=== PATIENT | female | born 1960 | race Two or more races ===

== ENCOUNTER → 2021-11-15 | Outpatient (CLI) | payer OTHER, SELFPAY ==
--- NOTE | 2021-11-15 07:59 | BI_ITS ---
MAMMOGRAPHY - BILATERAL SCREENING REASON FOR EXAM: Female, 61 years old. Routine annual screening examination. PERTINENT HISTORY: Aunt with breast cancer. TECHNIQUE: Digital bilateral breast eli (3D mammographic acquisition) in the CC and MLO projections. 2-D mediolateral oblique (MLO) and craniocaudad (CC) views of both breasts were obtained. CAD: Full Field Digital Mammography with Computer Added Detection was performed. COMPARISON: Comparison is made with prior examination of 07/10/2020. FINDINGS: Breast Composition: There are scattered areas of fibroglandular density. There are no dominant masses or suspicious calcifications. Stable 9.3 mm low density nodule in the axillary region of the left breast. Stable 4.9 mm well-defined nodule in the central slightly lateral anterior aspect of the right breast. Correlation with ultrasound of the right breast is recommended. No other significant abnormalities are identified. BI/SCRN MAMM (CAD)W/ELI BILAT IMPRESSION: 4.9 mm well-defined nodule in the central slightly lateral aspect of the right breast as described. Correlation with ultrasound is recommended. ASSESSMENT CATEGORY: BIRADS Category 0: Incomplete. Need additional imaging evaluation. A letter regarding these results will be sent to the patient by the facility within 30 days. Approximately 10% of breast cancers are not detected by mammography. A normal mammogram should not delay biopsy of a clinically suspicious abnormality. [id number] Electronically Signed: Patric Marinelli MD at 9:17 EDT ,
== END | disposition home or self-care (01) ==
LOC: OPBI 07:54
PROVIDERS: PCP Family Medicine; Visit Provider Family Medicine
DX: Z12.31 Encounter for screening mammogram for malignant neoplasm of breast (principal); Z80.3 Family history of malignant neoplasm of breast
CPT/HCPCS: 77063; 77067

== ENCOUNTER → 2021-11-19 | Outpatient (CLI) | payer OTHER, SELFPAY ==
--- NOTE | 2021-11-19 07:52 | US_ITS ---
STUDY: ULTRASOUND BREAST - RIGHT REASON FOR EXAM: Female, 61 years old. Abnormal screening mammogram. TECHNIQUE: Axial and longitudinal images of the RIGHT breast were performed with a high resolution ultrasound transducer. # OF IMAGES: 26 COMPARISON: Comparison is made with prior study 11/15/2021. FINDINGS: RIGHT Breast: The mammographic abnormality corresponds to an 8 mm x 7 mm x 4 mm hypoechoic solid nodule. The margins are slightly lobulated. This is seen at the 9 o''clock position breast at 2 cm from nipple. Biopsy recommended. US/Breast Limited Unilateral IMPRESSION: The mammographic abnormality corresponds to an 8 mm x 7 mm x 4 mm slightly lobulated hypoechoic nodule at the 9 o''clock position of the breast at 2 cm from nipple. Biopsy recommended. ASSESSMENT CATEGORY: BIRADS Category 4: Suspicious - Biopsy Should Be Considered. A letter regarding these results will be sent to the patient by the facility within 30 days. Electronically Signed: Patric Marinelli MD at 10:15 EDT ,
== END | disposition home or self-care (01) ==
LOC: OPUS 07:51
PROVIDERS: PCP Family Medicine; Visit Provider Family Medicine
DX: R92.8 Other abnormal and inconclusive findings on diagnostic imaging of breast (principal)
CPT/HCPCS: 76642

== ENCOUNTER → 2021-11-23 | Outpatient (CLI) | payer OTHER, SELFPAY ==
--- NOTE | 2021-11-23 07:40 | BRBX_PTH ---
PATIENT: SUJATHA AUGUSTE LOC: [facility] U#:[id number] AGE/SX: 61/F ROOM: RE11/23/[address]: Dr. Mari Fall MD : 1960 BED: DIS: 11/23/2021 SPEC #: [id number] RECD: 11/25/21 13:42 STATUS: MARIAELENA REBandar #: [id number] ANISH: 11/23/21 07:[address]: Mari Fall DEPT: SURGICAL PATHOLOGY RECD BY: Pam Sawyer ENTERED: 11/26/21 08:06 SP TYPE: BREAST BX OTHR DR: Dr. Agustín Sykes MD Tissues: Right breast, NOS Procedures: Surgery Specimen Level IV HEADER OPERATION: Right breast biopsy PRE-OP DIAGNOSIS: Right breast mass TISSUE SUBMITTED: Right breast mass 9 o?clock, 2 cm from nipple FIXATION TIME: 82 hours MICROSCOPIC DIAGNOSIS Right breast mass, 9 o?clock, 2 cm from nipple, core biopsy: Intraductal papilloma with florid intraductal hyperplasia. Negative for atypia or malignancy. See comment. JEANA:tommy 11/27/2021 COMMENT Correlation with clinical, radiologic findings and appropriate follow up are necessary. Case has been reviewed in consultation with Dr. Kitchen who concurs with the above diagnosis. IDC:AM MICROSCOPIC DESCRIPTION Slides are reviewed. GROSS DESCRIPTION Received in fixative is one container labeled with the patient's name and designated right breast. The specimen consists of multiple elongated fragments of posey-yellow fibroadipose tissue that in aggregate measure 2.5 x 1 x 0.1 cm. The entire specimen is submitted in one cassette. / JEANA:tommy 11/26/2021 TC:1 CPT: 93805
== END | disposition home or self-care (01) ==
PROVIDERS: PCP Family Medicine; Visit Provider Surgery
DX: N63.10 Unspecified lump in the right breast, unspecified quadrant (principal)
CPT/HCPCS: 88305

== ENCOUNTER → 2021-12-13 | Outpatient (CLI) | payer OTHER, SELFPAY | END | disposition home or self-care (01) | LOC: SL 11:29 | PROVIDERS: PCP Family Medicine; Referring Provider Family Medicine; Visit Provider Family Medicine | DX: G47.19 Other hypersomnia (principal); I10 Essential (primary) hypertension | CPT/HCPCS: 95806; A4216 ==

== ENCOUNTER → 2022-01-24 | Outpatient (CLI) | payer OTHER, SELFPAY | END | disposition home or self-care (01) | LOC: SL 16:23 | PROVIDERS: PCP Family Medicine; Visit Provider Family Medicine | DX: G47.33 Obstructive sleep apnea (adult) (pediatric) (principal) ==

== ENCOUNTER → 2022-04-15 | Outpatient (CLI) | payer OTHER, SELFPAY ==
--- NOTE | 2022-04-15 07:09 | RAD_ITS ---
STUDY: X-RAY CHEST REASON FOR EXAM: Female, 62 years old. Shortness of breath and cough TECHNIQUE: PA and lateral views of the chest. COMPARISON: None. FINDINGS: The lungs are clear and expanded. There is no demonstrated pleural abnormality. Normal size heart. Normal mediastinum and kal. Normal visualized pulmonary arteries. Normal visualized aortic arch and descending thoracic aorta. Normal visualized thoracic spine. Normal visualized ribs, clavicles, and shoulders. There is no demonstrated abnormality of the visualized soft tissue structures of the upper abdomen. RAD/Chest PA and Lateral IMPRESSION: Normal x-ray examination of the chest. Electronically Signed: Tyler Solares MD at 16:47 EST ,
[2022-04-15 07:49] LABS: ALB/GLOB Ratio 1.1 RATIO (0.9-2.4); AST(SGOT) 18 U/L (15-37); Alanine Aminotransfer ALT/SGPT 30 U/L (13-56); Albumin, Serum 3.5 g/dL (3.2-5.0); Alkaline Phosphatase 96 U/L (45-117); Anion Gap 5 (5-15); BUN 15 mg/dL (7-18); BUN/Creat Ratio 15.5 RATIO (10-20); Calcium,Total 8.7 mg/dL (8.5-10.1); Chloride 108 mmol/L (98-107); Cholesterol 166 mg/dL (200); Creatinine, Serum 0.97 mg/dL (0.55-1.02); EST Glomerular Filtration Rate 62 mL/min (>60); Est Glom Filt Rate - Afr Amer 75 mL/min (>60); Globulin 3.3 g/dL (2.2-4.2); Glucose 110 mg/dL (74-106); High Density Lipoprotein 40 mg/dL; Potassium 3.8 mmol/L (3.5-5.1); Protein, Total 6.8 g/dL (6.4-8.2); Sodium Level 142 mmol/L (136-145); Triglycerides 162 mg/dL; Very Low Density Lipoprotein 32 mg/dL (5-40)
== END | disposition home or self-care (01) ==
PROVIDERS: PCP Family Medicine; Referring Provider Family Medicine; Visit Provider Family Medicine
DX: R06.02 Shortness of breath (principal)
CPT/HCPCS: 36415; 71046; 80053; 80061

== ENCOUNTER → 2022-05-21 | Outpatient (CLI) | payer OTHER, SELFPAY ==
--- NOTE | 2022-05-21 07:37 | US_ITS ---
STUDY: ULTRASOUND BREAST - RIGHT REASON FOR EXAM: Female, 62 years old. Mass, previous biopsy TECHNIQUE: Axial and longitudinal images of the RIGHT breast were performed with a high resolution ultrasound transducer. # OF IMAGES: 39 COMPARISON: 11/19/2021 FINDINGS: RIGHT Breast: Sonographic evaluation of the right breast was performed from 10:00 to 8:00. Previously noted mass is again noted but is less conspicuous than on the previous study. It measures 0.6 x 0.7 x 0.5 cm at 9:00. Previously noted biopsy clip noted in same position as on the previous study. US/Breast Limited Unilateral IMPRESSION: Stable previously identified right breast mass containing biopsy clip. Another six-month follow-up recommended to assess stability ASSESSMENT CATEGORY: BIRADS Category 3: Probably Benign - Short-Interval Follow-up Suggested. A letter regarding these results will be sent to the patient by the facility within 30 days. Electronically Signed: Tyler Solares MD at 8:20 EDT ,
== END | disposition home or self-care (01) ==
LOC: OPUS 07:38
PROVIDERS: PCP Family Medicine; Visit Provider Surgery
DX: R92.8 Other abnormal and inconclusive findings on diagnostic imaging of breast (principal); N63.10 Unspecified lump in the right breast, unspecified quadrant
CPT/HCPCS: 76642

== ENCOUNTER → 2022-07-31 | Outpatient (CLI) | payer OTHER, SELFPAY ==
[2022-07-31 08:10] LABS: Absolute Lymphocyte Count 1.83 X10^3/uL (0.83-4.51); Absolute Neutrophil Count 1.5 X10^3/uL (2.0-7.7); Basophil# 0.05 X10^3/uL; Basophil% 1.2 % (0-1); Eosinophil# 0.38 X10^3/uL; Hematocrit 44.8 % (37-47); Hemoglobin 13.9 g/dL (12.0-15.0); Lymphocyte # 1.83 X10^3/ul (0.83-4.51); Lymphocyte % 43.2 % (19-41); Mean Corpuscular Hgb 27.7 pg (27.0-32.0); Mean Corpuscular Volume 89.4 fL (81-99); Monocyte# 0.45 X10^3/uL; Monocyte% 10.6 % (0-10); NRBC Flagged by Analyzer 0 % (0-5); Neutrophil # 1.52 X10^3/uL (2.7-7.7); Neutrophil % 35.8 % (47-70); Platelet Count 226 K/mm3 (150-450); RBC Distribution Width CV 13.7 % (11.6-14.6); RBC Distribution Width SD 44.7 fl (35.1-43.9); Red Blood Count 5.01 M/mm3 (4.2-5.4); White Blood Count 4.2 K/mm3 (4.4-11.0)
[2022-07-31 08:51] LABS: Hemoglobin A1c 5.3 % (3.8-5.6)
[2022-07-31 09:05] LABS: ALB/GLOB Ratio 1.1 RATIO (0.9-2.4); AST(SGOT) 23 U/L (15-37); Alanine Aminotransfer ALT/SGPT 32 U/L (13-56); Albumin, Serum 3.8 g/dL (3.2-5.0); Alkaline Phosphatase 111 U/L (45-117); Anion Gap 6 (5-15); BUN 13 mg/dL (7-18); BUN/Creat Ratio 13.3 RATIO (10-20); Chloride 108 mmol/L (98-107); Cholesterol 190 mg/dL (200); Creatinine, Serum 0.98 mg/dL (0.55-1.02); EST Glomerular Filtration Rate 61 mL/min (>60); Est Glom Filt Rate - Afr Amer 74 mL/min (>60); Globulin 3.4 g/dL (2.2-4.2); Glucose 114 mg/dL (74-106); High Density Lipoprotein 40 mg/dL; Potassium 3.7 mmol/L (3.5-5.1); Protein, Total 7.2 g/dL (6.4-8.2); Sodium Level 141 mmol/L (136-145); Triglycerides 178 mg/dL; Very Low Density Lipoprotein 36 mg/dL (5-40)
== END | disposition home or self-care (01) ==
LOC: LAB 07:08
PROVIDERS: PCP Family Medicine; Referring Provider Family Medicine; Visit Provider Family Medicine
DX: I10 Essential (primary) hypertension (principal); E78.5 Hyperlipidemia, unspecified; R73.01 Impaired fasting glucose
CPT/HCPCS: 36415; 80053; 80061; 83036; 85025

== ENCOUNTER → 2022-08-15 | Outpatient (CLI) | payer OTHER, SELFPAY ==
--- NOTE | 2022-08-15 09:31 | STRESSREP ---
Stress Test Report Exercise myocardial perfusion stress test. 62-year-old lady with a history of dyspnea Stress protocol: Resting EKG demonstrates sinus rhythm with a rate of 60 bpm resting blood pressure is 128/82 mmHg. The patient exercised according to the regular [facility] protocol for a total duration of 6 minutes attaining a maximum heart rate of 131 bpm which was 83% of maximum predicted heart rate; the maximum workload was 7 metabolic equivalents. At rest there were no ST or T wave changes noted to suggest ischemia and at peak exercise upsloping ST changes only were noted which did not meet the criteria for ischemia. No clinical angina was noted the test was terminated due to the target heart rate being achieved/fatigue. The peak blood pressure was 170/98 mmHg. Rate-pressure product was 21,000. Myocardial perfusion protocol. 10.4 mCi of technetium 99m sestamibi was injected at rest. The patient exercised according to regular [facility] protocol for total duration of 6 minutes and at peak exercise 33.3 mCi of technetium 99m sestamibi was injected stress images were obtained stress and rest images were reconstructed in comparing the short axis vertical long and horizontal long axis. Gated images were also obtained. Perfusion SPECT analysis: Review of the stress images demonstrate normal uptake of tracer noted in all areas of the myocardium. The resting images similarly demonstrate normal uptake of tracer noted in all areas of the myocardium. No areas of reversibility are noted to suggest ischemia no previous infarct was noted. Gated SPECT analysis: The gated ejection fraction is 76%. Conclusion: Normal exercise myocardial perfusion stress test at a moderate workload Preserved ejection fraction.
== END | disposition home or self-care (01) ==
LOC: CVS 06:48
PROVIDERS: PCP Family Medicine; Referring Provider Internal Medicine Cardiovascular Disease; Visit Provider Internal Medicine Cardiovascular Disease
DX: R06.02 Shortness of breath (principal); I10 Essential (primary) hypertension
CPT/HCPCS: 78452; 93017; A9500; A4216

== ENCOUNTER → 2022-09-06 | Outpatient (CLI) | payer OTHER, SELFPAY ==
--- NOTE | 2022-09-06 13:06 | CT_ITS ---
STUDY: CT CHEST WITHOUT CONTRAST REASON FOR EXAM: Female, 62 years old. SOB, CALCIUM SCORE. Cardiac over read examination. RADIATION DOSAGE (If Supplied By Facility): CTDIvol = ( 12.19 ) mGy, DLP = ( 195.04 ) mGycm TECHNIQUE: Transaxial imaging was performed without the administration of intravenous contrast material. Individualized dose optimization techniques were used for this CT. COMPARISON: No relevant priors. FINDINGS: CHEST There is a 4.5 mm pleural-based noncalcified nodule in the peripheral lateral aspect of the right lower lobe seen on axial image #50. Six-month follow-up CT scan of the thorax is recommended for further evaluation. There is no demonstrated pleural abnormality. There are calcifications of the coronary arteries. There are multiple small lymph nodes within the mediastinum, which are normal in size and morphology most compatible with reactive lymph hyperplasia. Normal hilar regions. Normal unenhanced pulmonary arteries. There is atherosclerotic calcification of the aortic arch. There are degenerative changes of the thoracic spine. There is no demonstrated abnormality of the visualized upper abdomen. CT/Limited Chest CT Cardiac Only IMPRESSION: Coronary artery calcification. 4.5 mm pleural-based noncalcified nodule in the peripheral lateral aspect the right lower lobe as described. A 6 month follow-up dedicated CT scan of the thorax is recommended. Electronically Signed: Patric Marinelli MD at 14:37 EDT ,
--- NOTE | 2022-09-06 16:18 | CA.SCORE ---
Calcium Scoring Date of Study:: 09/06/22 Indications Indications: Coronary risk factors Coronary Calcium Scoring: High-resolution Computed Tomographic imaging of the chest was performed on [09/06/2022], with particular attention paid to the coronary arteries. Images from the examination were analyzed for the presence and extent of coronary artery calcification , using coronary calcium quantification software. The patient tolerated the procedure well and there were no complications. The results of the coronary calcification analysis are provided below. Findings Coronary Artery Left Main (LM): 0 Left Anterior Descending (LAD): 2.46 Left Circumflex (LCX): 0 Right Coronary Artery (RCA): 1.23 Total Agatston Score: 3.69 Percentile Rankin% Calcium Scoring Interpretation: Different methods to categorize the overall amount of coronary plaque. Overall amount CAC SIS Visual of coronary plaque P1 Mild -100 <2 1-2 vessels with mild amount of plaque P2 Moderate 101-300 3-4 1-2 vessels with moderate amount, 3 vessels with mild amount of plaque P3 Severe 301-999 5-7 3 vessels with moderate amount, 1 vessel with severe amount of plaque P4 Extensive >1000 >8 2-3 vessels with severe amount of plaque Calcium Score: Mild: 1-2 vessels w/mild amount of plaque Conclusion: Minimal to mild atherosclerotic plaquing.
== END | disposition home or self-care (01) ==
LOC: CT 13:02
PROVIDERS: PCP Family Medicine; Referring Provider Internal Medicine Cardiovascular Disease; Visit Provider Internal Medicine Cardiovascular Disease
DX: I10 Essential (primary) hypertension (principal); R06.02 Shortness of breath
CPT/HCPCS: 75571; 76380

== ENCOUNTER → 2022-10-07 | Outpatient (CLI) | payer OTHER, SELFPAY ==
--- NOTE | 2022-10-07 08:10 | CT_ITS ---
STUDY: CT CHEST WITHOUT CONTRAST REASON FOR EXAM: Female, 62 years old. Follow-up for lung nodule. RADIATION DOSAGE (If Supplied By Facility): CTDIvol = ( 10.89 ) mGy, DLP = ( 375.60 ) mGycm TECHNIQUE: Transaxial imaging was performed without the administration of intravenous contrast material. Multiplanar coronal and sagittal images were reformatted. Individualized dose optimization techniques were used for this CT. COMPARISON: Comparison is made with prior study dated September 06, 2022. FINDINGS: CHEST There is enlargement of the lower pole of the right lobe of the thyroid. 3 mm noncalcified nodule in the peripheral lateral aspect of the right lower lobe as seen on axial image #83. A 12 month follow-up examination is recommended. There is no demonstrated pleural abnormality. There are calcifications of the coronary arteries. Normal mediastinum. Normal hilar regions. Normal unenhanced pulmonary arteries. There is atherosclerotic calcification of the aortic arch. There are degenerative changes of the thoracic spine. There is no demonstrated abnormality of the visualized upper abdomen. CT/Chest without Contrast IMPRESSION: 3 mm noncalcified nodule in the peripheral lateral aspect of the right lower lobe as seen on axial image #83. A 12 month follow-up examinations recommended. Electronically Signed: Patric Marinelli MD at 12:21 EDT ,
== END | disposition home or self-care (01) ==
LOC: CT 08:06
PROVIDERS: PCP Family Medicine; Referring Provider Physician Assistant Medical; Visit Provider Physician Assistant Medical
DX: R91.1 Solitary pulmonary nodule (principal)
CPT/HCPCS: 71250

== ENCOUNTER 2022-10-09 12:44 | Emergency (ER) | payer OTHER, SELFPAY ==
[2022-10-09 12:45] VITALS: BP 144/113; PULSE 59; RESP 16; TEMP 36.6; O2SAT 99
--- NOTE | 2022-10-09 13:08 | EKG12_ITS ---
Test Reason : Blood Pressure : / mmHG Vent. Rate : 058 BPM Atrial Rate : 058 BPM P-R Int : 220 ms QRS Dur : 074 ms QT Int : 432 ms P-R-T Axes : 045 -12 073 degrees QTc Int : 424 ms Sinus bradycardia with 1st degree A-V block Otherwise normal ECG Confirmed by JOURDAN BERGERON, ALEC ([id number]), editor managing newspaper RHODA JIMENEZ ([id number]) on 10/11/2022 1:24:50 PM Referred By: FRANCINE Confirmed By:TAYLOR SOLIMAN MD
--- NOTE | 2022-10-09 13:10 | RAD_ITS ---
STUDY: X-RAY CHEST REASON FOR EXAM: Female, 62 years old. Chest pain TECHNIQUE: Single AP portable view of the chest. COMPARISON: Comparison is made with prior study dated April 15, 2022. FINDINGS: EKG electrodes are seen. The lungs are clear and expanded. There is no demonstrated pleural abnormality. Normal size heart. Normal mediastinum and kal. Normal visualized pulmonary arteries. There is atherosclerotic tortuosity of the aortic arch and descending thoracic aorta. There are degenerative changes of the visualized thoracic spine. Normal visualized ribs, clavicles, and shoulders. There is no demonstrated abnormality of the visualized soft tissue structures of the upper abdomen. RAD/Chest 1 View (Portable) IMPRESSION: No acute abnormality is seen. Electronically Signed: Patric Marinelli MD at 13:31 EDT ,
[2022-10-09 13:19] LABS: Absolute Lymphocyte Count 1.69 X10^3/uL (0.83-4.51); Absolute Neutrophil Count 5.9 X10^3/uL (2.0-7.7); Basophil# 0.03 X10^3/uL; Basophil% 0.4 % (0-1); Hematocrit 44.4 % (37-47); Hemoglobin 14.5 g/dL (12.0-15.0); Lymphocyte # 1.69 X10^3/ul (0.83-4.51); Lymphocyte % 20.5 % (19-41); Mean Corp Hgb Conc 32.7 g/dL (32-36); Mean Corpuscular Hgb 29.1 pg (27.0-32.0); Mean Platelet Vol. 9.5 fl (6.2-12.0); Monocyte# 0.58 X10^3/uL; NRBC Flagged by Analyzer 0 % (0-5); Neutrophil # 5.87 X10^3/uL (2.7-7.7); Neutrophil % 71.3 % (47-70); Platelet Count 274 K/mm3 (150-450); RBC Distribution Width CV 14.1 % (11.6-14.6); RBC Distribution Width SD 45.8 fl (35.1-43.9); Red Blood Count 4.99 M/mm3 (4.2-5.4); White Blood Count 8.2 K/mm3 (4.4-11.0)
[2022-10-09 13:42] LABS: Anion Gap 4 (5-15); BUN 17 mg/dL (7-18); BUN/Creat Ratio 16.5 RATIO (10-20); Calcium,Total 8.9 mg/dL (8.5-10.1); Chloride 107 mmol/L (98-107); Creatinine, Serum 1.03 mg/dL (0.55-1.02); EST Glomerular Filtration Rate 57 mL/min (>60); Est Glom Filt Rate - Afr Amer 69 mL/min (>60); Glucose 87 mg/dL (74-106); Potassium 3.6 mmol/L (3.5-5.1); Sodium Level 140 mmol/L (136-145); Troponin-I HS (w/2H Reflex) 4 pg/mL (3.0-54.0)
--- NOTE | 2022-10-09 13:53 | CT_ITS ---
INDICATION: Severe bilateral upper back pain. EXAMINATION: CTA CHEST, ABDOMEN AND PELVIS WITH CONTRAST - TECHNIQUE: A CTA of the chest, abdomen, and pelvis is obtained with sagittal and coronal reconstructed MIP views. Three-dimensional surface rendered sequence of the thoracic and abdominal aorta was obtained. A radiation dose optimization technique was used for this scan. mL of Isovue-370. Oral contrast: None. COMPARISON: None. FINDINGS: CT CHEST: Heterogeneous appearance of the right lobe of the thyroid. THORACIC AORTA: There is diffuse circumferential thickening of the descending thoracic aorta from the level of the posterior aortic arch down to the origin of the abdominal aorta just distal to the diaphragmatic hiatus. This may represent changes secondary to intramural hematoma. No evidence of dissection is seen at this time. ABDOMINAL AORTA: No aneurysm or dissection. No significant atheromatous disease. The iliac arteries are unremarkable. LUNGS: The lungs are well-expanded without acute or chronic changes. No effusions or pneumothorax. MEDIASTINUM: The thyroid gland is normal. No mediastinal or hilar adenopathy. HEART: Heart is normal size. No pericardial effusion. No CAD. CT ABDOMEN AND PELVIS: LIVER: The liver enhances homogeneously. No masses identified. GALLBLADDER: The CBD is normal. Normal gallbladder. SPLEEN: Normal. PANCREAS: No masses or inflammation. ADRENAL GLANDS: Normal. KIDNEYS AND URETERS: The kidneys both enhance appropriately. There are normal size and shape. No hydronephrosis or nephrolithiasis. No renal masses or cysts. STOMACH: Normal. SMALL BOWEL: No abnormal distention of the small bowel. MESENTERY: No mesenteric inflammation. No ascites. COLON: No significant diverticulosis, masses or inflammation. The colon otherwise is normal. There is a large fatty ileocecal valve. APPENDIX: The appendix is visualized and normal. IVC: Normal. RETROPERITONEUM: No retroperitoneal lymphadenopathy. PELVIC STRUCTURES: Normal bladder. SOFT TISSUES ABDOMEN: The anterior abdominal wall is normal. SOFT TISSUE CHEST: The extrathoracic soft tissues are normal. BONES: No fractures or significant degenerative disease. CT/CTA Chst, Abd, Pel W and/or WO IMPRESSION: Diffuse circumferential wall thickening of the descending thoracic aorta from the posterior aspect of the aortic arch down to the diaphragmatic hiatus. Intramural hematoma should be ruled out. Normal contrast-enhanced CT of the abdomen and pelvis. N.B. : The above Results were Read Back by Patric Marinelli MD to Ry Recinos DO, and understanding confirmed on 10/09/2022 14:50:13 (ET). Electronically Signed: Patric Marinelli MD at 14:52 EDT ,
[2022-10-09 14:00] VITALS: BP 117/80; PULSE 59; RESP 18; O2SAT 97
[2022-10-09] MEDS: Morphine 4 MG/ML Syringe IV (14:03)
[2022-10-09] MEDS: Ondansetron 4 MG/2 ML Vial IV (14:03)
[2022-10-09 14:17] LABS: AST(SGOT) 13 U/L (15-37); Alanine Aminotransfer ALT/SGPT 27 U/L (13-56); Albumin, Serum 3.8 g/dL (3.2-5.0); Alkaline Phosphatase 99 U/L (45-117); Bilirubin, Direct 0.15 mg/dL (0.00-0.30); Globulin 3.6 g/dL (2.2-4.2); Lipase 33 U/L (13-75); Protein, Total 7.4 g/dL (6.4-8.2)
[2022-10-09 15:00] VITALS: BP 126/66; PULSE 60; RESP 18; O2SAT 96
[2022-10-09] MEDS: HYDROmorphone 1 MG/ML Syringe IV (15:03)
[2022-10-09 15:12] LABS: Reflex Troponin-HS? (from REC) Y
--- NOTE | 2022-10-09 15:15 | EDS_ITS ---
HPI History of Present Illness Chief Complaint: Chest Pain Informant: patient Onset/Context/Timing Onset: Today Activity at onset: sudden Timing: Continuous Quality: Positive for Sharp and - (Squeezing) Location: Substernal (And epigastric) Worsened By: Nothing Relieved By: Nothing Associated Symptoms: Positive for Nausea and Diaphoresis; Negative for Vomiting, Dyspnea, Cough, Fever, Lightheadedness, Acid Reflux or Palpitations Narrative Narrative: Presents with epigastric and chest pain that began approximately 2 hours prior to arrival. Patient states she felt a pop in her epigastric area and lower chest. Patient states her pain began immediately after this. Patient states it began rather suddenly. Patient states it has been constant. Patient describes it as sharp and squeezing. Patient states it radiates into her back. Patient states nothing makes it better nothing makes it worse. Patient admits to some nausea but denies any vomiting. Patient admits to some diaphoresis. Patient denies any shortness of breath or cough. Patient denies any fevers or chills. CVD Risk Factors: Positive for Hypertension, Hypercholesterolemia and Family History 1' </=55; Negative for Diabetes or Smoking PE Risk Factors: Negative for Recent Travel/Surgery, Recent Immobilization, Prior DVT or PE or Cancer [facility] Medical History Abnormal ultrasound of breast Anxiety and depression Breast mass, right Essential hypertension Hyperlipidemia Maxillary sinusitis CORA on CPAP Pain and swelling of left ankle Home Medications amlodipine 10 mg tablet 10 mg PO DAILY 11/23/21 [History Last Taken Unknown] paroxetine HCl 20 mg tablet 20 mg PO DAILY 08/06/22 [History Last Taken Unknown] rosuvastatin 10 mg tablet 10 mg PO 2XW 08/06/22 [History Last Taken Unknown] prednisone 10 mg tablet 10 mg PO DIRECTED #30 tabs 10/02/22 [Rx Last Taken Unknown] Allergy/AdvReac Type Severity Reaction Status Date / Time cephalexin [From Keflex] Allergy Intermediate hives Verified 10/09/22 12:46 Family History Father Diabetes Heart disease Hyperlipidemia Brother Heart disease Hypertension Kidney disease Hyperlipidemia Mother Hyperlipidemia Hypertension Aunt Breast cancer Surgical History History of breast biopsy History of colonoscopy (~2020) History of dilation and curettage History of lymph node excision (~2015) History of tonsillectomy and adenoidectomy History of wisdom tooth extraction Social History Smoking Status: Never smoker alcohol intake: current alcohol intake frequency: holidays/special occasions only substance use type: does not use caffeine: Yes Type: tea Number of servings: 2 ROS ROS ED Constitutional Constitutional ED: Denies chills or fever(s) Eyes Eyes: Denies blurry vision or change in vision ENT ENT ED: Denies rhinorrhea or sore throat Cardiovascular Cardiovascular: Reports as per HPI and chest pain; Denies palpitations Respiratory/Chest Respiratory/Chest: Denies cough or dyspnea Gastrointestinal Gastrointestinal: Reports nausea; Denies vomiting Genitourinary Genitourinary ED: Denies dysuria or hematuria Musculoskeletal Musculoskeletal: Reports back pain; Denies neck pain Integumentary Denies abscess or rash Neurologic Neurologic: Denies headache(s) or weakness Allergic/Immunologic Allergic/Immunologic ED: Denies mouth swelling or urticaria EXAM Physical Exam Const Vital Signs: 10/09/22 12:45 10/09/22 14:00 10/09/22 15:00 Temperature 98 F Temperature Source Temporal Pulse Rate 59 L 59 L 60 Respiratory Rate 16 18 18 Blood Pressure 144/113 H 117/80 126/66 H Blood Pressure Mean 123 92 86 Pulse Ox 99 97 96 Oxygen Delivery Method Room Air Room Air Room Air 10/09/22 13:08 10/09/22 16:00 Temperature Temperature Source Pulse Rate 60 Respiratory Rate 16 Blood Pressure 132/92 H Blood Pressure Mean 105 Pulse Ox 96 Oxygen Delivery Method Room Air Room Air Positive well nourished and well developed General Appearance ED: well developed Neck supple and no JVD Chest Wall inspection of chest normal Resp normal respiratory effort and clear to auscultation bilaterally Cardio regular rate and regular rhythm GI soft to palpation, non-tender and non-distended Extremity normal to inspection Extremity Narrative: Pedal posterior tibial pulses are equal bilaterally. Neuro oriented x3, CN's II-XII intact bilaterally and no sensory deficits noted Sensorium / Orientation: awake and alert Motor Exam: strength 5/5 throughout MDM MDM MDM Narrative Medical decision making narrative: Differential diagnosis includes aortic dissection, pulmonary embolism, abdominal aneurysm, cardiac dysrhythmia, cardiac ischemia, pneumonia, pneumothorax, electrolyte abnormality, acute kidney injury, pancreatitis, gastritis, peptic ulcer disease, cholelithiasis, and cholecystitis. EKG will be obtained to assess for cardiac dysrhythmia and cardiac ischemia. Chest x-ray will be obtained to assess for pneumonia, pneumothorax, widened mediastinum. CTA of the chest, abdomen, and pelvis will be obtained to assess for aortic dissection and pulmonary embolism. CBC will be obtained to assess for leukocytosis and anemia. Basic metabolic profile will be obtained to assess for electrolyte abnormality and renal function. High-sensitivity troponin will be obtained to assess for cardiac ischemia. 2-hour repeat high-sensitivity troponin will be obtained to assess for ongoing cardiac ischemia. Lipase will be obtained to assess for pancreatitis. Liver profile will be obtained to assess for hepatic function. Lab Data Attestation: I reviewed the patient's lab results. Lab results narrative: CBC was reviewed and was within normal limits. Basic metabolic profile was re viewed and was within normal limits. Liver profile was reviewed and was within normal limits. Initial high-sensitivity troponin was reviewed and was normal at 4. Lipase was reviewed and was normal. Labs: Laboratory Results - last 24 hr 10/09/22 10/09/22 13:05 15:25 WBC 8.2 RBC 4.99 Hgb 14.5 Hct 44.4 MCV 89.0 MCH 29.1 MCHC 32.7 RDW Std Deviation 45.8 H RDW Coeff of Félix 14.1 Plt Count 274 MPV 9.5 Immature Gran % (Auto) 0.800 Neut % (Auto) 71.3 H Lymph % (Auto) 20.5 [place] % (Auto) 7.0 Eos % (Auto) 0.0 Baso % (Auto) 0.4 Absolute Neuts (auto) 5.9 Absolute Lymphs (auto) 1.69 Nucleated RBC % 0 Sodium 140 Potassium 3.6 Chloride 107 Carbon Dioxide 29.0 Anion Gap 4 L BUN 17 Creatinine 1.03 H Est GFR (MDRD) Af Amer 69 Est GFR (MDRD) Non-Af 57 L BUN/Creatinine Ratio 16.5 Glucose 87 Calcium 8.9 Total Bilirubin 0.80 Direct Bilirubin 0.15 AST 13 L ALT 27 Alkaline Phosphatase 99 Troponin I High Sens 4 4 Total Protein 7.4 Albumin 3.8 Globulin 3.6 Lipase 33 Radiography Chest X-Ray - ED: 1 View, Read by ED Physician, Read by Radiologist and No Acute Disease Diagnostic Testing: Clinical Impression(s) from Imaging Studies Chest X-Ray 10/09/22 13:10 IMPRESSION: No acute abnormality is seen. Electronically Signed: Patric Marinelli MD at 13:31 EDT , Chest/Abdomen/Pelvis CTA 10/09/22 13:53 IMPRESSION: Diffuse circumferential wall thickening of the descending thoracic aorta from the posterior aspect of the aortic arch down to the diaphragmatic hiatus. Intramural hematoma should be ruled out. Normal contrast-enhanced CT of the abdomen and pelvis. N.B. : The above Results were Read Back by Patric Marinelli MD to Ry Recinos DO, and understanding confirmed on 10/09/2022 14:50:13 (ET). Electronically Signed: Patric Marinelli MD at 14:52 EDT , ADDENDUM: 10/09/22 1459 IMPRESSION: Diffuse circumferential wall thickening of the descending thoracic aorta from the posterior aspect of the aortic arch down to the diaphragmatic hiatus. Intramural hematoma should be ruled out. Normal contrast-enhanced CT of the abdomen and pelvis. N.B. : The above Results were Read Back by Patric Marinelli MD to Ry Recinos DO, and understanding confirmed on 10/09/2022 14:50:13 (ET). Electronically Signed: Patric Marinelli MD at 14:52 EDT , Portable 1 view chest x-ray was obtained. On my independent interpretation, lung nielsen are clear. There is normal cardiac silhouette. Bony thorax is normal. There is no acute process noted. Radiologist also interpreted the x- ray and agrees. CTA of the chest, abdomen, and pelvis was obtained. There is diffuse circumferential wall thickening of the descending thoracic aorta from the posterior aspect of the aortic arch down to the diaphragmatic hiatus. Intramural hematoma should be ruled out. This was interpreted by the radiologist and was also independently reviewed by myself. EKG Initial EKG: Attestation: I personally reviewed and interpreted this EKG as follows: Interpretation: No Acute Injury Pattern and Sinus Bradycardia (With first- degree AV block with a rate of 58) Comments: EKG was obtained. On my independent interpretation, it showed a sinus bradycardia with a rate of 58. WA interval was prolonged at 220 ms. QRS interval was normal at 74 ms. QTc interval was normal at 424 ms. [place] was normal. There are no acute ST or T wave changes. Prior EKG tracings: available for review Prior: Unchanged (08/06/2022) Treatment and Re-Evaluation :: Patient was given morphine and Zofran initially. Patient states this helped initially but her pain returned. Patient was given a dose of Dilaudid. Patient was feeling better after this. Patient was advised of her findings. Patient requested to go to [facility]. The [facility] transfer line was contacted. There are no beds available there. We will contact [facility] to see if there is a bed there. Case was discussed with Dr. Haddad at [facility]. He accepted the patient to be transferred there. Patient was given a dose of labetalol here. They recommended bringing her blood pressure below 120 systolic. Patient was also a repeat dose of Dilaudid. Patient and spouse understand and are agreeable with the plan. All questions were answered. 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, Discussing w/Consultants, Arranging Admission or Transfer and Performing Direct Patient Care at Bedside Discharge Plan Triage Chief Complaint: Chest Pain ED Provider: Ry Recinos Dx/Rx/DC Orders Clinical Impression: Intramural hematoma of thoracic aorta, Essential hypertension Prescriptions: No Action amlodipine 10 mg tablet 10 mg PO DAILY paroxetine HCl 20 mg tablet 20 mg PO DAILY Patient Comments: TAKE 1 TABLET BY MOUTHEONCE DAILY rosuvastatin 10 mg tablet 10 mg PO 2XW prednisone 10 mg tablet 10 mg PO DIRECTED Qty: 30 0RF Rx Instructions: 4 tablets daily x 3 days, then 3 tablets daily x 3 days, then 2 tablets daily x 3 days, then 1 tablets daily x 3 days Primary Care Provider: Agustín Sykes Referrals: Agustín Sykes MD [Primary Care Provider] - Disposition Disposition: Acute Care Hospital Discharge Location: [facility]
[2022-10-09 15:20] VITALS: BMI 32.5
[2022-10-09 15:54] LABS: Troponin-I HS 4 pg/mL (3.0-54.0)
[2022-10-09 16:00] VITALS: BP 132/92; PULSE 60; RESP 16; O2SAT 96
--- NOTE | 2022-10-09 16:32 | NURSING ---
10/09/22@1630- Updated CC, awaiting clearance.
[2022-10-09] MEDS: Labetalol (Prefilled) 20 MG/4 ML 10 MG IV (16:56)
[2022-10-09 17:00] VITALS: BP 107/62; PULSE 52; PULSE 54; RESP 16; TEMP 36.8; O2SAT 93; O2SAT 96
[2022-10-09] MEDS: HYDROmorphone 0.5 MG/0.5 ML SYRINGE IV (17:09)
== END 2022-10-09 17:45 | disposition short-term general hospital (02) ==
PROVIDERS: Emergency Provider Emergency Medicine; PCP Family Medicine; Visit Provider Emergency Medicine
DX: I71.019 Dissection of thoracic aorta, unspecified (principal); E78.5 Hyperlipidemia, unspecified; I10 Essential (primary) hypertension; F41.8 Other specified anxiety disorders; R11.0 Nausea
CPT/HCPCS: 71045; 71275; 74174; 80048; 80076; 83690; 84484; 85025; 93005; 96374; 96375; 96376; 99285; Q9967; A4216; J2405

== ENCOUNTER → 2022-11-26 | Outpatient (CLI) | payer OTHER, SELFPAY ==
--- NOTE | 2022-11-26 14:57 | US_ITS ---
STUDY: ULTRASOUND BREAST - RIGHT REASON FOR EXAM: Female, 62 years old. Six-month follow-up of a right breast mass. Prior biopsy. TECHNIQUE: Axial and longitudinal images of the RIGHT breast were performed with a high resolution ultrasound transducer. # OF IMAGES: 29 COMPARISON: Comparison is made with prior study of May 21, 2022. FINDINGS: RIGHT Breast: Imaging was performed from the 6 to 10:00 position of the right breast. There is a 5 mm x 4 mm x 2 mm hypoechoic nodular density at the 9:00 position in the breast at 2 cm from nipple. Clip is seen within it. US/Breast Limited Unilateral IMPRESSION: Stable examination. ASSESSMENT CATEGORY: BIRADS Category 2: Benign. A letter regarding these results will be sent to the patient by the facility within 30 days. Electronically Signed: Patric Marinelli MD at 14:50 EDT ,
== END | disposition home or self-care (01) ==
LOC: OPUS 14:55
PROVIDERS: PCP Family Medicine; Referring Provider Surgery; Visit Provider Surgery
DX: N63.10 Unspecified lump in the right breast, unspecified quadrant (principal); R92.8 Other abnormal and inconclusive findings on diagnostic imaging of breast
CPT/HCPCS: 76642

== ENCOUNTER → 2023-01-31 | Outpatient (CLI) | payer OTHER, SELFPAY ==
--- NOTE | 2023-01-31 12:36 | BI_ITS ---
MAMMOGRAPHY - BILATERAL SCREENING REASON FOR EXAM: Female, 63 years old. Routine annual screening examination. PERTINENT HISTORY: Aunt with breast cancer. History of prior right ultrasound-guided breast biopsy. TECHNIQUE: Digital bilateral breast eli (3D mammographic acquisition) in the CC and MLO projections. 2-D mediolateral oblique (MLO) and craniocaudad (CC) views of both breasts were obtained. CAD: Full Field Digital Mammography with Computer Added Detection was performed. COMPARISON: Comparison is made with prior study dated November 15, 2021. FINDINGS: Breast Composition: There are scattered areas of fibroglandular density. There are no dominant masses or suspicious calcifications. Since prior study, ultrasound guided biopsy was performed in the small nodule in the central slightly lateral aspect of the right breast. The nodule is not seen at this time. Stable 9.3 mm low-density nodule in the axillary region of the left breast. No other significant abnormalities are identified. There has been no significant change since the prior study. BI/SCRN MAMM (CAD)W/ELI BILAT IMPRESSION: Stable bilateral screening mammogram. Status post right ultrasound-guided breast biopsy with resorption of the nodular density at the biopsy site. Yearly follow-up mammogram recommended. (A) ASSESSMENT CATEGORY: BIRADS Category 2: Benign. A letter regarding these results will be sent to the patient by the facility within 30 days. Approximately 10% of breast cancers are not detected by mammography. A normal mammogram should not delay biopsy of a clinically suspicious abnormality. [id number] Electronically Signed: Patric Marinelli MD at 10:04 EST ,
== END | disposition home or self-care (01) ==
LOC: OPBI 12:32
PROVIDERS: PCP Family Medicine; Referring Provider Family Medicine; Visit Provider Family Medicine
DX: Z12.31 Encounter for screening mammogram for malignant neoplasm of breast (principal); Z80.3 Family history of malignant neoplasm of breast
CPT/HCPCS: 77063; 77067

== ENCOUNTER → 2024-02-02 | Outpatient (CLI) | payer MEDICARE, OTHER, SELFPAY ==
--- NOTE | 2024-02-02 11:45 | BI_ITS ---
MAMMOGRAPHY - BILATERAL SCREENING 3-D TOMOSYNTHESIS REASON FOR EXAM: Female, 64 years old. SCREENING PERTINENT HISTORY: No significant family history. TECHNIQUE: 2-D mammograms and 3-D Tomosynthesis of the breast (s) were performed. CAD was performed. COMPARISON: 01/31/2023 FINDINGS: The breast composition is composed of scattered fibroglandular density. Scattered benign calcifications are seen. No dense spiculated masses or suspicious microcalcifications are identified. No architectural distortion is identified. There is no skin thickening or retraction. There has been no significant change since the prior study. BI/SCRN MAMM (CAD)W/ELI BILAT IMPRESSION: No mammographic signs of malignancy. Routine yearly mammograms recommended. ASSESSMENT CATEGORY: BIRADS Category 1: Negative. A letter regarding these results will be sent to the patient by the facility within 30 days. FOLLOW UP RECOMMENDATION: Yearly follow up mammogram recommended. (A) Approximately 10% of breast cancers are not detected by mammography. A normal mammogram should not delay biopsy of a clinically suspicious abnormality. Electronically Signed: Jayesh Penn MD at 16:43 EST ,
== END | disposition home or self-care (01) ==
LOC: OPBI 11:44
PROVIDERS: PCP Family Medicine; Referring Provider Family Medicine; Visit Provider Family Medicine
DX: Z12.31 Encounter for screening mammogram for malignant neoplasm of breast (principal)
CPT/HCPCS: 77063; 77067

== ENCOUNTER → 2025-02-07 | Outpatient (CLI) | payer MEDICARE, OTHER, SELFPAY ==
--- NOTE | 2025-02-07 09:55 | BI_ITS ---
EXAM: SCRN MAMM (CAD)W/ELI BILAT DATE: 02/07/2025 CLINICAL HISTORY: F, Age 65 y/o , SCREENING TECHNIQUE: Procedure Code: [id number] Modality: MG Procedure: SCRN MAMM (CAD)W/ELI BILAT COMPARISON: Prior exam(s) dated 02/02/2024, 01/31/2023. FINDINGS: TISSUE DENSITY: There are scattered areas of fibroglandular density. Bilateral Breast Mammographic Findings: There are no suspicious masses, suspicious clustered microcalcifications, architectural distortion or secondary signs of malignancy identified in either breast. Benign-appearing round microcalcifications are seen in both breasts. A radiopaque clip is seen in the lateral aspect of the right breast. The biopsy was benign. Post biopsy site is stable. A stable 1 cm partially obscured isodense masses seen in the superior outer, far posterior aspect of the left breast. BI/SCRN MAMM (CAD)W/ELI BILAT IMPRESSION: Benign screening mammogram OVERALL FINAL ASSESSMENT BI-RADS 2: BENIGN RECOMMENDATION: Routine annual follow-up in 1 Year Additional Recommendation none A letter with findings and recommendations will be mailed to the patient. Reading Location: [id number]
== END | disposition home or self-care (01) ==
PROVIDERS: PCP Family Medicine; Referring Provider Family Medicine; Visit Provider Family Medicine
DX: Z12.31 Encounter for screening mammogram for malignant neoplasm of breast (principal)
CPT/HCPCS: 77063; 77067